=== PATIENT | male | born 1935 | race Caucasian/White ===

== ENCOUNTER 2019-02-23 01:44 | Emergency (ER) | payer MEDICARE ==
[~2019-02-23] VITALS: Ht 167.6 cm; Wt 68.4 kg
[~2019-02-23 01:44] MED LIST: ASPIRIN EC325 MG PO; AVODART0.5 MG PO; C 500 PO; CALCIUM600 M2 PO; CALTRATE 602 OR; CLARITIN RDT10 MG PO; CLARITIN10 M1 PO; FISH OIL1000 MG PO; FLONASE NASAL50 MCG; LIPITOR20 MG PO; LISINOPRIL10 MG PO; LOPRESSOR25 MG PO; METOPROL TAR25 MG PO; MULTIVITAM10 OR; OMEPRAZOLE20 M1 PO; PLAVIX75 MG PO; VITAMIN E400 UNIT OR; VITAMIN E400 UNIT PO; ZITHROMAX250 MG PO
[2019-02-23 02:34] LABS: HEMATOCRIT 39.6 % (39.0-50.0); HEMOGLOBIN 12.7 g/dl (14.0-18.0); IMMATURE GRANULOCYTES 0.2 % (0.0-5.0); MEAN CELL VOLUME 89.4 fL CALC (80.0-100.0); MEAN CORPUSCULAR HGB 28.7 pG CALC (26.0-32.0); MEAN CORPUSCULAR HGB CONC 32.1 g/L CALC (32.0-36.0); NEUT# 2.86 thou/uL (1.82-7.42); RED BLOOD COUNT 4.43 mill/uL (4.70-6.10); RED CELL DISTRI WIDTH 13.5 % (11.5-15.5)
[2019-02-23 02:41] LABS: ALBUMIN 4.1 g/dL (3.2-5.0); ALKALINE PHOSPHATASE 109 u/l (38-126); ANION GAP 14 (6-22 (CALC)); BILIRUBIN, TOTAL 0.5 mg/dL (0.0-1.4); BUN 16 mg/dL (8-23); BUN/CREATININE RATIO 16 (12-20 (CALC)); CARBON DIOXIDE 26 mmol/l (22-30); CHLORIDE 105 mmol/l (95-108); GFR > 60 ML/MIN (>=60 (CALC)); GFR FOR AFR.AMER. > 60 ML/MIN (>=60 (CALC)); INTERNATIONAL NORMALIZED RATIO 0.9 RATIO (0.7-1.3); POTASSIUM 4.3 mmol/l (3.5-5.1); PROTHROMBIN TIME 9.9 SECONDS (9.0-12.5); SGOT/AST 33 u/l (19-48); SODIUM 140 mmol/l (137-146); TOTAL PROTEIN 7.1 g/dL (6.3-8.2)
[2019-02-23 03:30] VITALS: BP 146/77
== END 2019-02-23 03:30 | disposition home or self-care (01) ==
LOC: ED 01:44
PROVIDERS: Emergency Medicine
PROC: 2Y41X5Z Packing of Nasal Region using Packing Material (ICD-10-PCS; principal; 2019-02-23)
DX: R04.0 Epistaxis (principal); I10 Essential (primary) hypertension

== ENCOUNTER 2019-03-08 23:27 | Emergency (ER) | payer MEDICARE ==
[~2019-03-08] VITALS: Ht 167.6 cm; Wt 68.1 kg
[2019-03-09 00:37] LABS: HEMOGLOBIN 11.8 g/dl (14.0-18.0); IMMATURE GRANULOCYTES 0.3 % (0.0-5.0); MEAN CORPUSCULAR HGB 28.7 pG CALC (26.0-32.0); MEAN CORPUSCULAR HGB CONC 31.9 g/L CALC (32.0-36.0); NEUT# 3.04 thou/uL (1.82-7.42); RED BLOOD COUNT 4.11 mill/uL (4.70-6.10); RED CELL DISTRI WIDTH 13.6 % (11.5-15.5)
[2019-03-09 00:41] LABS: ALBUMIN 3.9 g/dL (3.2-5.0); ALKALINE PHOSPHATASE 111 u/l (38-126); ANION GAP 14 (6-22 (CALC)); BILIRUBIN, TOTAL 0.4 mg/dL (0.0-1.4); BUN 16 mg/dL (8-23); BUN/CREATININE RATIO 16 (12-20 (CALC)); CARBON DIOXIDE 25 mmol/l (22-30); CHLORIDE 108 mmol/l (95-108); GFR > 60 ML/MIN (>=60 (CALC)); GFR FOR AFR.AMER. > 60 ML/MIN (>=60 (CALC)); POTASSIUM 4.7 mmol/l (3.5-5.1); PROTHROMBIN TIME 10.2 SECONDS (9.0-12.5); SGOT/AST 23 u/l (19-48); SODIUM 142 mmol/l (137-146); TOTAL PROTEIN 6.8 g/dL (6.3-8.2)
[2019-03-09 01:17] VITALS: BP 138/79
== END 2019-03-09 01:34 | disposition home or self-care (01) ==
LOC: ED 23:27
PROVIDERS: Emergency Medicine
DX: Z48.00 Encounter for change or removal of nonsurgical wound dressing (principal); I10 Essential (primary) hypertension

== ENCOUNTER 2019-03-10 09:40 | Emergency (ER) | payer MEDICARE ==
[~2019-03-10] VITALS: Ht 167.6 cm; Wt 70.0 kg
[2019-03-10 10:42] VITALS: BP 133/71
== END 2019-03-10 10:48 | disposition home or self-care (01) ==
LOC: ED 09:40
DX: Z48.00 Encounter for change or removal of nonsurgical wound dressing (principal); I10 Essential (primary) hypertension

== ENCOUNTER 2019-03-14 05:33 | Emergency (ER) | payer MEDICARE ==
[~2019-03-14] VITALS: Ht 167.6 cm; Wt 68.0 kg
[2019-03-14 07:23] VITALS: BP 156/88
== END 2019-03-14 07:31 | disposition home or self-care (01) ==
LOC: ED 05:33
DX: R04.0 Epistaxis (principal); I10 Essential (primary) hypertension

== ENCOUNTER 2019-03-15 21:44 | Emergency (ER) | payer MEDICARE ==
[~2019-03-15] VITALS: Ht 167.6 cm; Wt 68.0 kg
[2019-03-15 22:07] LABS: HEMATOCRIT 35.5 % (39.0-50.0); HEMOGLOBIN 11.4 g/dl (14.0-18.0); IMMATURE GRANULOCYTES 0.4 % (0.0-5.0); MEAN CELL VOLUME 89.6 fL CALC (80.0-100.0); MEAN CORPUSCULAR HGB 28.8 pG CALC (26.0-32.0); MEAN CORPUSCULAR HGB CONC 32.1 g/L CALC (32.0-36.0); NEUT# 5.02 thou/uL (1.82-7.42); RED BLOOD COUNT 3.96 mill/uL (4.70-6.10); RED CELL DISTRI WIDTH 13.9 % (11.5-15.5)
[2019-03-15 22:25] LABS: ALKALINE PHOSPHATASE 101 u/l (38-126); ANION GAP 14 (6-22 (CALC)); BILIRUBIN, TOTAL 0.5 mg/dL (0.0-1.4); BUN 20 mg/dL (8-23); BUN/CREATININE RATIO 22 (12-20 (CALC)); CARBON DIOXIDE 25 mmol/l (22-30); CHLORIDE 106 mmol/l (95-108); CREATININE 0.9 mg/dL (0.7-1.3); GFR > 60 ML/MIN (>=60 (CALC)); GFR FOR AFR.AMER. > 60 ML/MIN (>=60 (CALC)); POTASSIUM 4.6 mmol/l (3.5-5.1); SGOT/AST 23 u/l (19-48); SODIUM 140 mmol/l (137-146); TOTAL PROTEIN 6.8 g/dL (6.3-8.2)
[2019-03-15 22:50] VITALS: BP 166/87
== END 2019-03-15 22:52 | disposition home or self-care (01) ==
LOC: ED 21:44
PROVIDERS: Emergency Medicine
DX: R04.0 Epistaxis (principal); I10 Essential (primary) hypertension

== ENCOUNTER 2019-06-17 10:44 | Day surgery (SDC) | payer MEDICARE ==
[~2019-06-17] VITALS: Ht 170.2 cm; Wt 65.3 kg
[~2019-06-17 10:44] MED LIST changes: +ALLEGRA180 MG PO; +CLOPIDOGREL75 MG PO; +MUCINEX1200 MG PO; +ZESTRIL10 M1 PO; +[UNRECOGNIZED DRUG - OTHER] PO
[2019-06-17 12:24] VITALS: BP 156/78
== END 2019-06-17 12:42 | disposition home or self-care (01) ==
LOC: ENDO 10:44
PROVIDERS: ATTEND Internal Medicine Gastroenterology
PROC: 0D758ZZ Dilation of Esophagus, Via Natural or Artificial Opening Endoscopic (ICD-10-PCS; principal; 2019-06-17)
PROC: 0DB48ZX Excision of Esophagogastric Junction, Via Natural or Artificial Opening Endoscopic, Diagnostic (ICD-10-PCS; 2019-06-17)
PROC: 0DB78ZX Excision of Stomach, Pylorus, Via Natural or Artificial Opening Endoscopic, Diagnostic (ICD-10-PCS; 2019-06-17)
DX: K22.70 Barrett's esophagus without dysplasia (principal); K29.50 Unspecified chronic gastritis without bleeding; K31.9 Disease of stomach and duodenum, unspecified; K21.9 Gastro-esophageal reflux disease without esophagitis; J38.1 Polyp of vocal cord and larynx; I10 Essential (primary) hypertension; Z98.890 Other specified postprocedural states; Z79.899 Other long term (current) drug therapy; Z86.73 Personal history of transient ischemic attack (TIA), and cerebral infarction without residual deficits; Z79.01 Long term (current) use of anticoagulants

== ENCOUNTER 2019-07-21 06:26 | Emergency (ER) | payer MEDICARE ==
[~2019-07-21] VITALS: Ht 170.2 cm; Wt 67.0 kg
[2019-07-21] MEDS ORDERED: RANITIDINE150 M1 PO (07:03)
[2019-07-21 07:13] LABS: HEMATOCRIT 37.9 % (39.0-50.0); HEMOGLOBIN 11.7 g/dl (14.0-18.0); IMMATURE GRANULOCYTES 0.3 % (0.0-5.0); MEAN CELL VOLUME 86.9 fL CALC (80.0-100.0); MEAN CORPUSCULAR HGB 26.8 pG CALC (26.0-32.0); MEAN CORPUSCULAR HGB CONC 30.9 g/L CALC (32.0-36.0); NEUT# 5.1 thou/uL (1.82-7.42); RED BLOOD COUNT 4.36 mill/uL (4.70-6.10); RED CELL DISTRI WIDTH 14.3 % (11.5-15.5)
[2019-07-21 07:32] LABS: ALBUMIN 4.1 g/dL (3.2-5.0); ALKALINE PHOSPHATASE 102 u/l (38-126); ANION GAP 14 (6-22 (CALC)); BILIRUBIN, TOTAL 0.4 mg/dL (0.0-1.4); BUN 16 mg/dL (8-23); BUN/CREATININE RATIO 16 (12-20 (CALC)); CARBON DIOXIDE 27 mmol/l (22-30); CHLORIDE 102 mmol/l (95-108); GFR > 60 ML/MIN (>=60 (CALC)); GFR FOR AFR.AMER. > 60 ML/MIN (>=60 (CALC)); POTASSIUM 4.3 mmol/l (3.5-5.1); SGOT/AST 22 u/l (19-48); SODIUM 138 mmol/l (137-146); TOTAL PROTEIN 7.4 g/dL (6.3-8.2)
[2019-07-21] MEDS ORDERED: ALLER-CHLOR4 MG PO (07:37)
[2019-07-21] MEDS ORDERED: SUDAFED CONGEST30 MG PO (07:37)
[2019-07-21] MEDS ORDERED: FLONASE AL50 MCG/ACT (07:37)
[2019-07-21 08:00] VITALS: BP 161/74
== END 2019-07-21 08:00 | disposition home or self-care (01) ==
LOC: ED 06:26
PROVIDERS: Family Medicine
DX: R09.89 Other specified symptoms and signs involving the circulatory and respiratory systems (principal); R09.82 Postnasal drip; J34.89 Other specified disorders of nose and nasal sinuses; I10 Essential (primary) hypertension; K21.9 Gastro-esophageal reflux disease without esophagitis

== ENCOUNTER 2020-12-30 | Emergency (ER) | payer MEDICARE ==
[~2020-12-30] MED LIST changes: +ALLER-CHLOR4 MG PO; +FLONASE AL50 MCG/ACT; +RANITIDINE150 M1 PO; +SUDAFED CONGEST30 MG PO
[2020-12-30 09:35] LABS: HEMATOCRIT 40.1 % (39.0-50.0); HEMOGLOBIN 12.3 g/dl (14.0-18.0); IMMATURE GRANULOCYTES 0.3 % (0.0-5.0); MEAN CELL VOLUME 88.1 fL CALC (80.0-100.0); MEAN CORPUSCULAR HGB CONC 30.7 g/dL CAL (32.0-36.0); NEUT# 4.04 thou/uL (1.82-7.42); RED BLOOD COUNT 4.55 mill/uL (4.70-6.10); RED CELL DISTRI WIDTH 15.1 % (11.5-15.5)
[2020-12-30 09:53] LABS: ANION GAP 11 (6-22 (CALC)); BUN 16 mg/dL (8-23); BUN/CREATININE RATIO 14 (12-20 (CALC)); CARBON DIOXIDE 29 mmol/l (22-30); CHLORIDE 100 mmol/l (95-108); CREATININE 1.1 mg/dL (0.7-1.3); GFR > 60 ML/MIN (>=60 (CALC)); GFR FOR AFR.AMER. > 60 ML/MIN (>=60 (CALC)); SODIUM 136 mmol/l (137-146)
[2020-12-30] MEDS ORDERED: DOXYCYC MONO100 M2 PO (10:53)
== END 2020-12-30 11:31 | disposition home or self-care (01) ==
PROVIDERS: Family Medicine
DX: J18.9 Pneumonia, unspecified organism (principal); I10 Essential (primary) hypertension; K21.9 Gastro-esophageal reflux disease without esophagitis; Z20.822 Contact with and (suspected) exposure to COVID-19

== ENCOUNTER 2021-01-19 05:34 | Emergency (ER) | payer MEDICARE ==
[~2021-01-19 05:34] MED LIST changes: +DOXYCYC MONO100 M2 PO
[2021-01-19 06:16] LABS: HEMOGLOBIN 12.8 g/dl (14.0-18.0); IMMATURE GRANULOCYTES 0.2 % (0.0-5.0); MEAN CORPUSCULAR HGB 27.5 pG CALC (26.0-32.0); MEAN CORPUSCULAR HGB CONC 31.2 g/dL CAL (32.0-36.0); NEUT# 2.8 thou/uL (1.82-7.42); RED BLOOD COUNT 4.66 mill/uL (4.70-6.10); RED CELL DISTRI WIDTH 15.2 % (11.5-15.5)
[2021-01-19] MEDS ORDERED: PANTOPRAZOLE SO40 M1 PO (06:26)
[2021-01-19 06:27] LABS: ALBUMIN 4.7 g/dL (3.2-5.0); ALKALINE PHOSPHATASE 92 u/l (38-126); AMYLASE 61 u/l (30-110); ANION GAP 12 (6-22 (CALC)); BUN 18 mg/dL (8-23); BUN/CREATININE RATIO 16 (12-20 (CALC)); CARBON DIOXIDE 30 mmol/l (22-30); CHLORIDE 98 mmol/l (95-108); CREATININE 1.1 mg/dL (0.7-1.3); GFR > 60 ML/MIN (>=60 (CALC)); GFR FOR AFR.AMER. > 60 ML/MIN (>=60 (CALC)); LIPASE 54 u/l (23-300); POTASSIUM 4.4 mmol/l (3.5-5.1); SGOT/AST 28 u/l (19-48); SODIUM 135 mmol/l (137-146); TOTAL PROTEIN 8.3 g/dL (6.3-8.2)
[2021-01-19] MEDS ORDERED: ATORVASTATIN CA20 MG PO (06:27)
[2021-01-19] MEDS ORDERED: PROAIR HFA108 MCG/AC PO (06:29)
[2021-01-19] MEDS ORDERED: AZELASTINE0.1 % (06:30)
[2021-01-19 06:37] LABS: D-DIMER 1.24 mg/L (0.19-0.60)
[2021-01-19 06:39] LABS: MYOGLOBIN 60 ng/mL (0 - 121)
[2021-01-19 06:43] LABS: ACT PARTIAL THROMBO TIME 22.9 SECONDS (20.0-32.5)
[2021-01-19 11:20] VITALS: BP 133/63
== END 2021-01-19 11:20 ==
LOC: ED 05:34
PROVIDERS: Family Medicine
DX: R07.9 Chest pain, unspecified (principal); R91.8 Other nonspecific abnormal finding of lung field; I10 Essential (primary) hypertension; K21.9 Gastro-esophageal reflux disease without esophagitis
CPT/HCPCS: Q9967

== ENCOUNTER 2021-06-05 20:15 | Emergency (ER) | payer MEDICARE ==
[~2021-06-05] VITALS: Ht 167.6 cm; Wt 66.0 kg
[~2021-06-05 20:15] MED LIST changes: +ATORVASTATIN CA20 MG PO; +AZELASTINE0.1 %; +PANTOPRAZOLE SO40 M1 PO; +PROAIR HFA108 MCG/AC PO
[2021-06-05 21:33] LABS: HEMATOCRIT 39.1 % (39.0-50.0); HEMOGLOBIN 12.6 g/dl (14.0-18.0); IMMATURE GRANULOCYTES 0.2 % (0.0-5.0); MEAN CELL VOLUME 89.1 fL CALC (80.0-100.0); MEAN CORPUSCULAR HGB 28.7 pG CALC (26.0-32.0); MEAN CORPUSCULAR HGB CONC 32.2 g/dL CAL (32.0-36.0); NEUT# 4.5 thou/uL (1.82-7.42); RED BLOOD COUNT 4.39 mill/uL (4.70-6.10); RED CELL DISTRI WIDTH 14.5 % (11.5-15.5)
[2021-06-05 21:54] LABS: ALBUMIN 3.8 g/dL (3.2-5.0); ALKALINE PHOSPHATASE 148 u/l (38-126); ANION GAP 11 (6-22 (CALC)); BILIRUBIN, TOTAL 0.8 mg/dL (0.0-1.4); BUN 18 mg/dL (8-23); BUN/CREATININE RATIO 18 (12-20 (CALC)); CARBON DIOXIDE 26 mmol/l (22-30); CHLORIDE 99 mmol/l (95-108); D-DIMER 0.92 mg/L (0.19-0.60); GFR > 60 ML/MIN (>=60 (CALC)); GFR FOR AFR.AMER. > 60 ML/MIN (>=60 (CALC)); SGOT/AST 72 u/l (19-48); SODIUM 131 mmol/l (137-146); TOTAL PROTEIN 7.4 g/dL (6.3-8.2)
[2021-06-05 22:05] LABS: ACT PARTIAL THROMBO TIME 26.3 SECONDS (20.0-32.5); INTERNATIONAL NORMALIZED RATIO 0.9 RATIO (0.7-1.3); PROTHROMBIN TIME 9.9 SECONDS (9.0-12.5)
[2021-06-05 22:06] LABS: MYOGLOBIN 64 ng/mL (0 - 121)
[2021-06-06 01:29] VITALS: BP 170/89
== END 2021-06-06 01:30 | disposition home or self-care (01) ==
LOC: ED 20:15
PROVIDERS: Family Medicine
DX: U07.1 COVID-19 (principal); J12.82 Pneumonia due to coronavirus disease 2019; I10 Essential (primary) hypertension; K21.9 Gastro-esophageal reflux disease without esophagitis
CPT/HCPCS: Q9967

== ENCOUNTER 2021-06-08 13:13 | Inpatient (IN) | payer MEDICARE ==
[2021-06-08] VITALS (8 sets, daily range): BP systolic 131–161; BP diastolic 70–92
[~2021-06-08] VITALS: Ht 172.7 cm; Wt 76.0 kg
--- NOTE | 2021-06-08 13:13 | NUR ---
PT TO ROOM VIA EMS STRETCHER ON VENTI MASK. HE WAS PLACED ON 5 L NC AND SPO2 88 %. PER DR ROLDAN HE WAS PLACED ON 12L HIGH FLOW, SPO2 94%.
[2021-06-08 13:36] LABS: GFR > 60 ML/MIN (>=60 (CALC)); GFR FOR AFR.AMER. > 60 ML/MIN (>=60 (CALC))
[2021-06-08 13:41] LABS: HEMATOCRIT 40.3 % (39.0-50.0); HEMOGLOBIN 13.2 g/dl (14.0-18.0); IMMATURE GRANULOCYTES 0.4 % (0.0-5.0); MEAN CORPUSCULAR HGB 28.8 pG CALC (26.0-32.0); MEAN CORPUSCULAR HGB CONC 32.8 g/dL CAL (32.0-36.0); NEUT# 10.65 thou/uL (1.82-7.42); RED BLOOD COUNT 4.58 mill/uL (4.70-6.10); RED CELL DISTRI WIDTH 14.5 % (11.5-15.5)
--- NOTE | 2021-06-08 13:47 | NUR ---
PATIENT RESTING IN BED WITH WARM BLANKET. AWAITING TRANSPORT TO XRAY.
[2021-06-08 13:58] LABS: ALBUMIN 3.7 g/dL (3.2-5.0); ALKALINE PHOSPHATASE 139 u/l (38-126); ANION GAP 13 (6-22 (CALC)); BUN 24 mg/dL (8-23); BUN/CREATININE RATIO 27 (12-20 (CALC)); CARBON DIOXIDE 25 mmol/l (22-30); CHLORIDE 99 mmol/l (95-108); CREATININE 0.9 mg/dL (0.7-1.3); GFR > 60 ML/MIN (>=60 (CALC)); GFR FOR AFR.AMER. > 60 ML/MIN (>=60 (CALC)); POTASSIUM 3.4 mmol/l (3.5-5.1); SGOT/AST 73 u/l (19-48); SODIUM 134 mmol/l (137-146); TOTAL PROTEIN 7.6 g/dL (6.3-8.2)
[2021-06-08 14:08] LABS: BILIRUBIN, TOTAL 1.3 mg/dL (0.0-1.4); C-REACTIVE PROTEIN 25.3 mg/dL (0-0.9)
--- NOTE | 2021-06-08 14:57 | NUR ---
PATIENT IS RESTING IN BED WITH THE LIGHTS TURNED DOWN. WARM BLANKET APPLIED. ANTIBIOTICS INFUSING. NO ACUTE DISTRESS.
--- NOTE | 2021-06-08 15:25 | NUR ---
Admission Note Report Given to: TOM Transported by: Wheelchair X Stretcher Transported with: X Nurse Transporter X Patent IV X O2 X Food Server Location: X ICU MS2
--- NOTE | 2021-06-08 15:25 | NUR ---
PT ARRIVED FROM ED, ON 15L O2, IV INFUSING, NO S/S OF DISTRESS NOTED.
--- NOTE | 2021-06-08 18:02 | NUR ---
PT NEEDS ATTENDED TOO, VSS, NO S/S OF DISTRESS NOTED
--- NOTE | 2021-06-08 20:30 | NUR ---
PATIENT RESTNG IN BED, WATCHING TV. NO COMPLAINTS VOICED. RESP NON-LABORED. O2 AT 15 L HFNC. O2 SAT 95% DIMINISHED BREATH SOUNDS THROUGHOUT LUNG COLEMAN. IV INFUSING WITHOUT INCIDNET. INTELLECTUAL PROPERTY LAWYER SHOWS SR. DISCUSSED PLAN OF CARE. DENIES NEEDS AT THIS TIME. CALL BOSCH IN REACH.
--- NOTE | 2021-06-08 22:00 | NUR ---
RESTING QUIETLY. VSS. SR ON MONITOR.
[2021-06-09] VITALS (20 sets, daily range): BP systolic 92–157; BP diastolic 53–91
--- NOTE | 2021-06-09 | NUR ---
RESTING WITH EYES CLOSED. RESP NON-LABORED AT REST. CONTINUES ON 02 AT 15 L HFNC. O2 SAT 93% SR ON MONITOR.
--- NOTE | 2021-06-09 02:25 | NUR ---
PATIENT UP TO USE BSC, VOIDED WITH BM. INCREASED SOB WITH EXERTION. FREQ DRY COUGH NOTED. MEDICATED WITH VENTOLIN INHALER FOR SOB AND ROBITUSSIN FOR COUGH.
--- NOTE | 2021-06-09 03:59 | NUR ---
DOZES FOR SHORT INTERVALS. DRY COUGH PERSISTS. SR ON MONITOR.
[2021-06-09 05:19] LABS: HEMATOCRIT 38.7 % (39.0-50.0); HEMOGLOBIN 12.5 g/dl (14.0-18.0); IMMATURE GRANULOCYTES 0.4 % (0.0-5.0); MEAN CELL VOLUME 88.8 fL CALC (80.0-100.0); MEAN CORPUSCULAR HGB 28.7 pG CALC (26.0-32.0); MEAN CORPUSCULAR HGB CONC 32.3 g/dL CAL (32.0-36.0); NEUT# 9.38 thou/uL (1.82-7.42); RED BLOOD COUNT 4.36 mill/uL (4.70-6.10); RED CELL DISTRI WIDTH 14.4 % (11.5-15.5)
--- NOTE | 2021-06-09 05:45 | NUR ---
PATINT C/O INCREASED SOB, O2 SAT UPPER 80'S. PATINT PLACED ON CPAP BY RT- 12/60% O2 SAT INCREASED TO 93%
[2021-06-09 06:56] LABS: ALKALINE PHOSPHATASE 116 u/l (38-126); BILIRUBIN, TOTAL 0.9 mg/dL (0.0-1.4); BUN 26 mg/dL (8-23); BUN/CREATININE RATIO 33 (12-20 (CALC)); CARBON DIOXIDE 23 mmol/l (22-30); CHLORIDE 106 mmol/l (95-108); CREATININE 0.8 mg/dL (0.7-1.3); GFR > 60 ML/MIN (>=60 (CALC)); GFR FOR AFR.AMER. > 60 ML/MIN (>=60 (CALC)); SGOT/AST 86 u/l (19-48); SODIUM 137 mmol/l (137-146); TOTAL PROTEIN 6.2 g/dL (6.3-8.2)
[2021-06-09 07:02] LABS: ANION GAP 12 (6-22 (CALC)); POTASSIUM 4.1 mmol/l (3.5-5.1)
[2021-06-09 07:08] LABS: C-REACTIVE PROTEIN 22.6 mg/dL (0-0.9)
--- NOTE | 2021-06-09 08:00 | NUR ---
PATIENT IS A/O X3, ABLE TO MAKE NEEDS KNOWN TO STAFF. 2MM PERRLA, BILAT EYES. PATIENT IS WEARING GLASSES TO SEE. COMPLAINED OF DRY MOUTH, ICE WATER PROVIDED ON SIDE TABLE THAT IS WITHIN HIS REACH. SPEECH IS CLEAR. HARD OF HEARING. CLEAR LUNG SOUNDS, SLIGHTLY DIMINISHED ON THE BOTTOM BASES. NORMAL SINUS RYTHEM. VITAL SIGNS ARE STABLE. 13L OF HF NC. O2 SATS 94%. ACTIVE BOWEL SOUNDS. SOFT NON TENDER ABDOMEN. STRONG EQUAL HAND REAL PROPERTY APPRAISER. 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 NO ARM OR LEG DRIFT NOTED. NO EDEMA PRESENT AT THIS TIME. STRONG PULSES. SAFETY MEASURES IN PLACE. CALL LIGHT WITHIN REACH. WILL CONTINUE TO MONITOR PER HOSPITAL'S POLICY.
--- NOTE | 2021-06-09 08:58 | NUR ---
O2 SAT ON 13L HF 90%
--- NOTE | 2021-06-09 10:00 | NUR ---
PATIENT IS ON BEDSIDE COMMODE.
--- NOTE | 2021-06-09 10:36 | NUR ---
PATIENT'S NEIGHBOR CALLED, DOESNT HAVE PATIENT CODE, NO UPDATE PROVIDED.
--- NOTE | 2021-06-09 12:00 | NUR ---
PATIENT IS TALKING ON THE PHONE.
--- NOTE | 2021-06-09 13:00 | NUR ---
PATIENT IS DEMANDING LIQUID DIET ONLY, REFUSES ANY FOODS. EDUCATED HIM ON THE IMPORTANCE OF EATING HE AGREED TO "SOFT" DIET SO THAT ITS EASIER FOR HIM TO SWALLOW. NOW HE IS SAYING THAT HE CANT HAVE ANY TYPE OF FOOD AND ONLY WANTS LIQUIDS. INFORMED THE DOCTOR ABOUT PATIENT'S REQUEST.
--- NOTE | 2021-06-09 14:38 | NUR ---
PATIENT IS BEING DISREPECTFUL AND TRYING TO TELL ME HOW TO DO MY JOB. INFORMED HIM THAT I DO NOT KNOW HOW TO SET UP HIS AT HOME MACHINE, TOLD ME TO "LEARN HOW TO DO IT AND FIX IT UP FOR ME, THATS YOUR JOB". INFORMED HIM THATS NOT MY JOB, POSSIBLY RT CAN HELP. PATIENT THREW HIS HANDS UP AND TOLD ME "FORGET THAT FELECIA, YOU DO THIS LIKE I SAID TO". I WALKED OUT OF THE ROOM, SAFETY MEASURES ARE STILL IN PLACE.
--- NOTE | 2021-06-09 16:00 | NUR ---
PATIENT IS RESTING IN BED
--- NOTE | 2021-06-09 19:30 | NUR ---
RESTING IN BED ON ROUNDS. AWAKE, ALERT AND ORIENTED. RESP SLT LABORED, INCREASED LIRA. O2 SAT 88% ON 13 L HFNC, INCREASED TO 15 L. BREATH SOUNDS DIMINISHED THROUGHOUT. SHIFT ASSESSMENT COMPLETED. DISCUSSED PLAN OF CARE. TIMING ADJUSTER SHOWS SR. CALL BOSCH IN REACH.
--- NOTE | 2021-06-09 21:30 | NUR ---
PATIENT HAD BEEN PLACED ON HIS OWN CPAP BY RT WIT O2 AT 10 L BLED IN. PATIENT ONLY ON A SHORT TIME AND SAID HE COULD NOT STAND THE MASK. BACK ON HF NC AT 15 L.
[2021-06-10] VITALS (20 sets, daily range): BP systolic 114–162; BP diastolic 56–90
--- NOTE | 2021-06-10 | NUR ---
RESTING WITH EYES CLOSED. VSS. SR ON MONITOR.
--- NOTE | 2021-06-10 02:00 | NUR ---
C/O GASTRIC REFLUX. MEDICATED WITH MAALOX 30 ML PO.
--- NOTE | 2021-06-10 04:00 | NUR ---
RESTING WITHOUT COMPLAINTS.
[2021-06-10 05:54] LABS: HEMATOCRIT 37.1 % (39.0-50.0); HEMOGLOBIN 11.9 g/dl (14.0-18.0); MEAN CELL VOLUME 89.8 fL CALC (80.0-100.0); MEAN CORPUSCULAR HGB 28.8 pG CALC (26.0-32.0); MEAN CORPUSCULAR HGB CONC 32.1 g/dL CAL (32.0-36.0); RED BLOOD COUNT 4.13 mill/uL (4.70-6.10); RED CELL DISTRI WIDTH 14.6 % (11.5-15.5)
[2021-06-10 05:57] LABS: ALBUMIN 2.5 g/dL (3.2-5.0); ALKALINE PHOSPHATASE 96 u/l (38-126); ANION GAP 9 (6-22 (CALC)); BILIRUBIN, TOTAL 0.6 mg/dL (0.0-1.4); BUN 30 mg/dL (8-23); BUN/CREATININE RATIO 41 (12-20 (CALC)); CARBON DIOXIDE 26 mmol/l (22-30); CHLORIDE 108 mmol/l (95-108); CREATININE 0.8 mg/dL (0.7-1.3); GFR > 60 ML/MIN (>=60 (CALC)); GFR FOR AFR.AMER. > 60 ML/MIN (>=60 (CALC)); POTASSIUM 3.4 mmol/l (3.5-5.1); SGOT/AST 56 u/l (19-48); SODIUM 139 mmol/l (137-146); TOTAL PROTEIN 5.5 g/dL (6.3-8.2)
--- NOTE | 2021-06-10 06:00 | NUR ---
PATIENT SLEPT FOR SHORT INTERVALS.
--- NOTE | 2021-06-10 07:20 | NUR ---
PT IS ON 15L SAT IS 89%
--- NOTE | 2021-06-10 10:04 | NUR ---
PT IS NOW ON 40L .100 SAT 90%
--- NOTE | 2021-06-10 11:28 | NUR ---
Pt screened by ST. SENIOR ENERGY ANALYST recommends full evaluation based on current O2 needs and full liquid diet.
--- NOTE | 2021-06-10 16:27 | NUR ---
Patient not a good candidate for PT intervention today, because patient oxygen saturation is between 82% to 87%. Patient nurse suggested to PT to try again tomorrow.
--- NOTE | 2021-06-10 20:00 | NUR ---
PATIENT IS AWAKE IN BED, ALERT AND ORIENTED X3, ABLE TO MAKE NEEDS KNOWN. NO COMPLAINTS OF PAIN VERBALIZED. RESPIRATIONS EVEN, CURRENTLY O2 VIA N/C VAPOTHERM 40L/100%. PATIENT HAS BEEN MAINTAINING SATURATIONS 88-94%. DRAWER WAXER SHOWING SR IN THE 90S. VAD LAC INFUSING NS @ 100ML/HR. SKIN WARM AND DRY. URINAL AT BEDSIDE. ASSESSMENT COMPLETED AND CHARTED. BED IN LOW POSITION. CALL LIGHT WITHIN REACH.
--- NOTE | 2021-06-10 20:10 | NUR ---
LINENS CHANGED. PATIENT SPILLED WATER.
--- NOTE | 2021-06-10 22:00 | NUR ---
PATIENT RESTNG RIDE-SIDE LYING. NO COMPLAINTS. NO ACUTE DISTRESS OBSERVED. BED IN LOW POSITION. CALL LIGHT WITHIN REACH.
[2021-06-11] VITALS (24 sets, daily range): BP systolic 140–181; BP diastolic 67–95
--- NOTE | 2021-06-11 | NUR ---
PATIENT RESTING RIGHT-SIDE LYING WITH EYES CLOSED. NO ACUTE DISTRESS OBSERVED.
--- NOTE | 2021-06-11 02:00 | NUR ---
NO CHANGES OBSERVED. NO ACUTE DISTRESS NOTED.
--- NOTE | 2021-06-11 04:20 | NUR ---
PATIENT RESTING IN BED. O2 SATURATIONS MAINTAINING 88%-94%. NO ACUTE DISTRESS OBSERVED. BED IN LOW POSITION. CALL LIGHT WITHIN REACH.
--- NOTE | 2021-06-11 05:34 | NUR ---
PATIENT UP TO BSC X1 ASSIST FOR BM. OXYGEN SATURATION DROPPED TO 79% BUT RECOVERED WHILE ON BSC TO 90%. OXYGEN FLUCTUATED FROM 84-91. PATIENT BACK TO BED X1 ASSIST. COLD WATER GOTTEN. TISSUES GOTTEN. BED IN LOW POSITION. CALL LIGHT WITHIN REACH.
[2021-06-11 06:20] LABS: HEMATOCRIT 40.7 % (39.0-50.0); HEMOGLOBIN 13.1 g/dl (14.0-18.0); IMMATURE GRANULOCYTES 0.8 % (0.0-5.0); MEAN CELL VOLUME 88.3 fL CALC (80.0-100.0); MEAN CORPUSCULAR HGB 28.4 pG CALC (26.0-32.0); MEAN CORPUSCULAR HGB CONC 32.2 g/dL CAL (32.0-36.0); NEUT# 11.6 thou/uL (1.82-7.42); RED BLOOD COUNT 4.61 mill/uL (4.70-6.10); RED CELL DISTRI WIDTH 14.4 % (11.5-15.5)
[2021-06-11 06:47] LABS: ALBUMIN 2.7 g/dL (3.2-5.0); ALKALINE PHOSPHATASE 130 u/l (38-126); ANION GAP 9 (6-22 (CALC)); BUN 21 mg/dL (8-23); BUN/CREATININE RATIO 30 (12-20 (CALC)); CARBON DIOXIDE 26 mmol/l (22-30); CHLORIDE 105 mmol/l (95-108); CREATININE 0.7 mg/dL (0.7-1.3); GFR > 60 ML/MIN (>=60 (CALC)); GFR FOR AFR.AMER. > 60 ML/MIN (>=60 (CALC)); SGOT/AST 61 u/l (19-48); SODIUM 136 mmol/l (137-146); TOTAL PROTEIN 5.9 g/dL (6.3-8.2)
[2021-06-11 07:01] LABS: C-REACTIVE PROTEIN 22.4 mg/dL (0-0.9)
--- NOTE | 2021-06-11 08:31 | NUR ---
OT SCREENING COMPLETE: OT SERVICES NOT DEEMED NECESSARY AT THIS TIME
--- NOTE | 2021-06-11 11:30 | NUR ---
PT IV REPLACED TO RAC, PT HAD DISLODGED HIS AND WAS OUT WITH NO BLEEDING NOTED TO AREA. 20G PLACED TO RAC WITHOUT DIFFICULTY.
--- NOTE | 2021-06-11 18:10 | NUR ---
PT ENCOURAGED TO DO THINGS FOR HIMSELF, AND TO SIT UP AND MOVE AROUND IN BED.PT STATES HE IS UNABLE TO. EXPLAINED NOT MOVING IN BED WILL CAUSE GREATER ISSUES.
--- NOTE | 2021-06-11 18:50 | NUR ---
RECEIVED REPORT FROM TOM MALIN.
--- NOTE | 2021-06-11 19:30 | NUR ---
PATIENT AWAKE IN BED. VAPOTHERM 40/[address] ON MONITOR. HR REG. RESPIRATIONS EVEN AND LABORED. PATIENT UNABLE TO MAINTAINE 90% OXYGENATION. REPOSITIONED. ASSESSMENT COMPLETED AND CHARTED. BED IN LOW POSITION. CALL LIGHT WITHIN REACH.
--- NOTE | 2021-06-11 20:15 | NUR ---
PATIENT CONTINUES TO SAT IN THE MID 80'S, 84% WITHOUT IMPROVEMENT. HAS BEEN REPOSITIONED MULTIPLE TIMES/WAYS WITHOUT SUCCESS. PATIENT IS REFUSING TO WEAR THE CPAP AT THIS TIME. NOTIFIED DR. MARI. AT 2018 HE REACHED 90% BUT NOT SUSTAINING.
--- NOTE | 2021-06-11 21:00 | NUR ---
HS MEDS GIVEN. TOLERATED WELL.
--- NOTE | 2021-06-11 23:12 | NUR ---
RT assessing patient. Patient oxygen saturation 89%. Resting with eyes closed. If oxygen saturation falls, will ask patient if he is willing to wear NRB along with vapotherm to aid in oxygenation.
--- NOTE | 2021-06-11 23:52 | NUR ---
PATIENT O2 SATURATION MAINTIANING IN THE 90'S.
[2021-06-12] VITALS (10 sets, daily range): BP systolic 159–188; BP diastolic 70–86
--- NOTE | 2021-06-12 02:31 | NUR ---
RESTING WITH EYES CLOSED. OXYGEN SATURATION 90%.
--- NOTE | 2021-06-12 04:59 | NUR ---
PATIENT C/O TOO MUCH PRESSURE UP HIS NOSE. HE SAYS THE PRESSURE IS TWICE MUCH IT WAS EARLIER TONIGHT. THE SETTINGS HAVE NOT CHANGED. RECOMMEND TO USE MOISTURIZER AND WATER FOR COMFORT/SOOTHING EFFECT. REFUSING TO WEAR CPAP. OXYGEN SATURATION MID-80'S.
--- NOTE | 2021-06-12 05:32 | NUR ---
PATIENT ENCOURAGED TO LAY PRONE, WILL NOT, WILL ONLY LAY ON RIGHT SIDE. WILL NOT WEAR CPAP. OXYGEN SATURATION 80%.
[2021-06-12 06:00] LABS: HEMATOCRIT 41.5 % (39.0-50.0); HEMOGLOBIN 13.6 g/dl (14.0-18.0); MEAN CELL VOLUME 87.9 fL CALC (80.0-100.0); MEAN CORPUSCULAR HGB 28.8 pG CALC (26.0-32.0); MEAN CORPUSCULAR HGB CONC 32.8 g/dL CAL (32.0-36.0); RED BLOOD COUNT 4.72 mill/uL (4.70-6.10); RED CELL DISTRI WIDTH 14.6 % (11.5-15.5)
--- NOTE | 2021-06-12 06:00 | NUR ---
PATIENT OXYGEN SATURATIONS DROPPED INTO THE 70'S, NRB MASK PUT OVER THE TOP OF THE VAPOTHERM. OXYGEN INCREASED TO 89%. PT C/O RAPID HEART RATE.
[2021-06-12 06:18] LABS: ANION GAP 12 (6-22 (CALC)); BUN 22 mg/dL (8-23); BUN/CREATININE RATIO 33 (12-20 (CALC)); CARBON DIOXIDE 24 mmol/l (22-30); CHLORIDE 104 mmol/l (95-108); CREATININE 0.7 mg/dL (0.7-1.3); GFR > 60 ML/MIN (>=60 (CALC)); GFR FOR AFR.AMER. > 60 ML/MIN (>=60 (CALC)); MAGNESIUM 2.3 mg/dL (1.6-2.3); SODIUM 136 mmol/l (137-146)
--- NOTE | 2021-06-12 07:51 | NUR ---
PATIENT LAYING IN BED AT THIS TIME. ALERT AND ORIENTED AT THIS TIME. PATIENT IS NON-COMPLIANT WITH LEAVING O2 AND VAPO-THERM ON RE-EDUCATED PATIENT ON IMPORTANCE OF THIS. HOTBED TRANSFER OPERATOR DONE AT THIS TIME SEE INTERVENTIONS. LUNG COLEMAN ARE CLEAR IN UPPER/MIDDLE COLEMAN AND DIMINISHED IN LOWER COLEMAN WITH CRACKLES AT THIS TIME. NO SIGNS OF EDEMA. VAPO-THERM IN PLACE WIHT NON=REBREATHER ON TOP PATINET SPO2 CURRENTLY AT THIS TIME IS 89%. SIDERAILS ARE UP CALL LIGHT WITHIN REACH. TELE MONITOR READING ST AT 106 AT THIS TIME. WILL CONTINUE TO MONITOR.
--- NOTE | 2021-06-12 09:15 | NUR ---
PATIENT ASSISTED UP IN CHAIR AT THIS TIME. SPO2 IS CURRENTLY 84% PATIENT REFUSEING TO KEEP VAPO-THERM ON AND NON -REBREATHER AND CONTINUALLY PULLS THEM OFF STATING "I DON'T WANT THIS". DR. MARI NOTIFED AND IS HER TO SEE PATIENT AT THIS TIME.
--- NOTE | 2021-06-12 09:29 | NUR ---
IN ROOM WITH PATIENT AT THIS TIME. PATIENT STATED TO THIS NURSE THAT HE WANTS TO STOP ALL O2 THERAPY AT THIS TIME PATIENT STATED " I WANT TO GO" I TOLD PATIENT HE ISN'T WELL ENOUGH TO GO HOME PATIENT STATED AND POINT UP THAT "I WANT TO I AM DONE WITH ALL OF THIS". PATIENT ASKED IF HE WOULD CONSIDER HOSPICE AND HE STATED YES" LONG HE CAN STOP ALL OF "THIS" HE POINTED TO HIS FACE WHERE VAPOTHERM AND O2 IS ON. THIS NURSE SPOKE TO DR. MARI IN REGARDS TO PATIENTS WISHES AND DR. MARI WENT IN TO CONSULT WITH PATIENT AT THIS TIME.
--- NOTE | 2021-06-12 10:06 | NUR ---
2MG OF IV ATIVAN GIVEN AT THIS TIME FOR RESTLESSNESS. SPO2 AT THIS TIME IS 72% WITH VAPO-THERM (40/100% AT THIS TIME) AND A NON-REBREATHER. PATIENT INSTRUCTED TO SLOW DOWN BREATHING AND TAKE IN DEEP BREATHS TO MOVE SPO2 UP. PATIENT COMPLIED. PATIENT DID HAVE COUGHING SPELL AT THIS TIME. SPO2 MOVED UP TO 82%. PATIENT REMAINS UP IN CHAIR AT THIS TIME MONITOR ON AND CALL LIGHT IS WITHIN REACH. WILL CONTINUE TO MONITOR.
--- NOTE | 2021-06-12 11:53 | NUR ---
PATIENT PULLING OFF VAPOTHERM AND NON REBREATHING HR IN SINUS TACK AT 135 DR. TANNER NOTIFIED THAT MORPHINE WAS GIVEN AND PATIENT REMAINS COMBATIVE AND DR. TANNER STATED TO JUST COMFORT MEASURES AT THIS TIME.
--- NOTE | 2021-06-12 12:15 | NUR ---
PATIENT EXPIERED AT THIS TIME. DR. MARI CALLED AND NOTIFIED AT THIS TIME. BROTHER AMARILIS CORDOVA CALLED AND NOTIFED OF PATIENTS AT THIS TIME. [facility] NOTIFIED AND [facility] IN [place] NOTIFIED WELL. INVENTORY OF PERSONAL ITEMS TAKEN AND SEALED IN SECURITY BAG. PATIENT CATERINA HAS $29.00 IN [employer] AND DRIVERS LIC. S/S CARD BANK CARD CREDIT CARD NOTED. PATIENT GLASSES AND CELL PHONE AND RIVET MAKER IN SECRUITY BAG WELL. PATIENTS BROTHER STATED TO SEND ALL PERSONAL BELONGING WITH PATIENT TO HOME AND HE WOULD BE THERE ON THURSDAY TO PICK THEM UP.
== END 2021-06-12 12:15 | disposition expired | DRG 177 ==
LOC: ED 13:13 → ED-I 14:15 → ED 14:39 → ICU 14:40
PROVIDERS: Family Medicine; Hospitalist; ADMIT Internal Medicine; ATTEND Internal Medicine
PROC: XW033E5 Introduction of Remdesivir Anti-infective into Peripheral Vein, Percutaneous Approach, New Technology Group 5 (ICD-10-PCS; principal; 2021-06-09)
DX: U07.1 COVID-19 (principal); J12.82 Pneumonia due to coronavirus disease 2019; J96.01 Acute respiratory failure with hypoxia; J94.8 Other specified pleural conditions; E87.6 Hypokalemia; I10 Essential (primary) hypertension; G47.33 Obstructive sleep apnea (adult) (pediatric); N40.0 Benign prostatic hyperplasia without lower urinary tract symptoms; E78.00 Pure hypercholesterolemia, unspecified; F41.9 Anxiety disorder, unspecified; Z66 Do not resuscitate; Z91.19 Patient's noncompliance with other medical treatment and regimen
CPT/HCPCS: J1650; J2060; Q9967